=== PATIENT | female | born 1960 | race Caucasian/White ===

== ENCOUNTER → 2017-07-21 | Outpatient (CLI) | payer MEDICARE ==
[~2017-07-21] MED LIST: ALBUTEROL SULFAT3 M3 IH; AMBIEN 10MG10 MG PO; ATARAX 25MG25 MG/TAB PO; CELEXA 20MG20 MG/TAB PO; CELEXA20 MG PO; CELEXA40 MG PO; CEPHALEXIN500 M1 PO; CHANTIX 1MG1 MG PO; CHANTIX1 MG PO; CLEOCIN HCL300 MG PO; COMBIVENT INH14.7 GM IH; DEXILANT; DILAUDID 4MG TAB4 MG PO; ELAVIL10 MG PO; ELAVIL100 MG PO; FLEXERIL 1010 MG/TAB PO; HCTZ12.5TAB PO; HYDROCODONE/APAP; IMITREX100 MG PO; KLONOPIN 0.5MG0.5 MG PO; LEVAQUIN 750MG750 M1 PO; LIDODERM 5% PATC1 EA TP; LIDODERM PATCH TP; LORTAB 10/500 51 TAB; LORTAB 10/500 51 TAB PO; LYRICA 50MG CAP50 MG PO; MIRAPEX 0.0.125 MG/T PO; MS CONTIN15 MG PO; NEXIUM 40MG40 MG PO; NEXIUM PO; NICODERM C21 MG/PATC TOP; NORCO 325 MG-101 TAB PO; NORCO 325 MG-51 TAB PO; OMEGA 31000 MG PO; OXYGEN; PEGASYS180 MCG/0. MR; PHENERGAN 25 TA25 MG PO; PREDNISONE10 MG PO; PREDNISONE20 M1 PO; PRIL40 PO; PROMETHAZINE HC25 M2 PO; PROVENTIL0.09 MG/A1 IH; PROVENTIL0.09 MG/Ac IH; RIBAVIRIN200 MG PO; SEPTRA DS 8001 TAB PO; SEROQUEL 2525 MG/TAB PO; SOMA; SOMA 350MG350 MG/TAB PO; SOMA350 MG PO; TYLENOL 325MG325 MG PO; TYLENOL W/COD1 UDTAB PO; VITAMIN D1000 IU PO; VITAMIN D31000 IU PO; XANAX0.5 MG PO; ZITHROMAX Z PA250 MG PO
== END ==
LOC: COL.VAS 06-16 09:00
DX: R06.02 Shortness of breath (principal)

== ENCOUNTER → 2017-07-26 | Outpatient (CLI) | payer MEDICARE | LOC: COL.PUL 09:57 | DX: R06.02 Shortness of breath (principal); F17.210 Nicotine dependence, cigarettes, uncomplicated | CPT/HCPCS: J7674 ==

== ENCOUNTER 2017-11-03 11:10 | Inpatient (IN) | payer MEDICARE ==
[~2017-11-03] VITALS: Ht 162.6 cm; Wt 93.6 kg
[2017-11-03] VITALS (388 sets, daily range): BP systolic 115–139; BP diastolic 82–97; PULSE 84–91; TEMP 98.3–98.6; O2SAT 93–100
[2017-11-03 11:24] LABS: BASO # 0.1 (0.0-0.2); BASO % 0.6 % (0.0-2.0); EOS # 0.3 (0.0-0.7); EOS % 2.3 % (0-4.0); GRAN # 5.7 (1.4-6.5); HEMATOCRIT 39.8 % (37.0-47.0); HEMOGLOBIN 12.9 g/dl (12.5-16.0); LYMPH # 4.2 (1.2-3.4); LYMPH % 36.5 % (20.0-51.0); MEAN CELL VOLUME 96 fl (80.0-100.0); MEAN CORPUSCULAR HEMOGLOBIN 31 pg (27.0-31.0); MEAN CORPUSCULAR HGB CONC 32 g/dl (33.0-37.0); MEAN PLATELET VOLUME 10.9 fl (7.4-10.4); MONO # 1.2 (0.1-0.6); MONO % 10.2 % (1.7-9.3); PLATELET COUNT 285 K/mm3 (130-400); RED BLOOD COUNT 4.16 M/mm3 (4.10-5.30)
[2017-11-03 11:35] LABS: COLLECTION METHOD CATHETER
[2017-11-03 11:53] LABS: PH 5 (5-8); SQUAMOUS EPITHELIAL None Seen /hpf; URINE APPEARANCE Clear; URINE BACTERIA None Seen /hpf; URINE BILIRUBIN Negative (NEGATIVE); URINE BLOOD Negative (NEGATIVE); URINE COLOR Straw; URINE GLUCOSE Negative (NEGATIVE); URINE KETONE Negative (NEGATIVE); URINE LEUKOCYTE ESTERASE Negative (NEGATIVE); URINE NITRATE Negative (NEGATIVE); URINE PROTEIN(semi-quant) Negative (NEGATIVE); URINE RBC None Seen /hpf; URINE UROBILINOGEN Negative (NEGATIVE)
[2017-11-03 11:59] LABS: ACETAMINOPHEN < 10 ug/mL (10-30); ALANINE AMINOTRANSFERASE 34 U/L (9-52); ALCOHOL(ethanol),MEDICAL < 10 mg/dL; ALKALINE PHOSPHATASE 84 U/L (50-136); ANION GAP 9 mmol/L (7-16); AST,SGOT 28 U/L (15-37); BILIRUBIN,TOTAL 0.2 mg/dL (0.0-1.0); BLOOD UREA NITROGEN 9 mg/dL (7-17); CALCIUM 8.7 mg/dL (8.4-10.2); CARBON DIOXIDE 28 mmol/L (22-30); CHLORIDE 105 mmol/L (98-107); CREATININE, serum 0.66 mg/dL (0.52-1.25); GLUCOSE 92 mg/dL (74-106); POTASSIUM 3.3 mmol/L (3.4-5.0); SALICYLATE < 1.0 mg/dL; SODIUM 141 mmol/L (137-145); TOTAL PROTEIN 7.2 gm/dL (6.4-8.2)
[2017-11-03 12:05] LABS: TRICYCLIC ANTIDEPRESS URINE POSITIVE
[2017-11-03 15:39] LABS: ARTERIAL BLD GAS O2 SATURATION 97.3 % (92-100); ARTERIAL BLD GAS TCO2 CT 27.9; ARTERIAL BLOOD GAS BASE EXCESS 0.4 (-2-2); ARTERIAL BLOOD GAS HCO3 26.4 meq/L (22-26); ARTERIAL BLOOD GAS PCO2 48.4 mmHg (35-45); ARTERIAL BLOOD GAS PO2 102.2 mmHg (80-100); ARTERIAL BLOOD GAS pH 7.36 (7.35-7.45)
[2017-11-04] VITALS (1260 sets, daily range): BP systolic 91–143; BP diastolic 65–97; PULSE 70–99; TEMP 97.7–98.9; O2SAT 92–100
[2017-11-04 05:28] LABS: ARTERIAL BLD GAS O2 SATURATION 97.2 % (92-100); ARTERIAL BLD GAS TCO2 CT 26.5; ARTERIAL BLOOD GAS BASE EXCESS 0.3 (-2-2); ARTERIAL BLOOD GAS HCO3 25.3 meq/L (22-26); ARTERIAL BLOOD GAS PO2 95.9 mmHg (80-100)
[2017-11-04 06:17] LABS: BASO % 0.2 % (0.0-2.0); EOS % 0.1 % (0-4.0); GRAN # 11.6 (1.4-6.5); GRAN % 80.5 % (42.2-75.2); HEMATOCRIT 36.8 % (37.0-47.0); LYMPH # 1.8 (1.2-3.4); LYMPH % 12.3 % (20.0-51.0); MEAN CELL VOLUME 95 fl (80.0-100.0); MEAN CORPUSCULAR HEMOGLOBIN 31 pg (27.0-31.0); MEAN CORPUSCULAR HGB CONC 33 g/dl (33.0-37.0); MONO # 0.9 (0.1-0.6); MONO % 6.5 % (1.7-9.3); PLATELET COUNT 239 K/mm3 (130-400); RED BLOOD COUNT 3.86 M/mm3 (4.10-5.30); REDCELL DISTRIBUTION WIDTH-CV 13.6 % (11.5-14.5)
[2017-11-04 06:31] LABS: ALBUMIN 3.4 gm/dL (3.5-5.0); BILIRUBIN,TOTAL 0.3 mg/dL (0.0-1.0); CALCIUM 8.6 mg/dL (8.4-10.2); CREATININE, serum 0.71 mg/dL (0.52-1.25); MAGNESIUM 1.3 mg/dL (1.6-2.3); PHOSPHOROUS 3.5 mg/dL (2.5-4.5); POTASSIUM 3.8 mmol/L (3.4-5.0); TOTAL PROTEIN 6.5 gm/dL (6.4-8.2)
[2017-11-05] VITALS (1383 sets, daily range): BP systolic 125–183; BP diastolic 84–103; PULSE 59–83; TEMP 97.5–99.3; O2SAT 73–100
[2017-11-05 05:06] LABS: ARTERIAL BLD GAS O2 SATURATION 93.6 % (92-100); ARTERIAL BLD GAS TCO2 CT 26.8; ARTERIAL BLOOD GAS BASE EXCESS 2.1 (-2-2); ARTERIAL BLOOD GAS HCO3 25.7 meq/L (22-26); ARTERIAL BLOOD GAS PCO2 36.4 mmHg (35-45); ARTERIAL BLOOD GAS PO2 68.6 mmHg (80-100); ARTERIAL BLOOD GAS pH 7.47 (7.35-7.45)
[2017-11-05 05:41] LABS: BASO % 0.1 % (0.0-2.0); EOS % 0.1 % (0-4.0); GRAN # 7.6 (1.4-6.5); GRAN % 87.9 % (42.2-75.2); HEMOGLOBIN 11.7 g/dl (12.5-16.0); LYMPH # 0.8 (1.2-3.4); LYMPH % 9.5 % (20.0-51.0); MEAN CELL VOLUME 95 fl (80.0-100.0); MEAN CORPUSCULAR HEMOGLOBIN 31 pg (27.0-31.0); MEAN CORPUSCULAR HGB CONC 33 g/dl (33.0-37.0); MEAN PLATELET VOLUME 11.2 fl (7.4-10.4); MONO # 0.2 (0.1-0.6); MONO % 1.9 % (1.7-9.3); PLATELET COUNT 196 K/mm3 (130-400); RED BLOOD COUNT 3.81 M/mm3 (4.10-5.30); REDCELL DISTRIBUTION WIDTH-CV 13.4 % (11.5-14.5)
[2017-11-05 05:53] LABS: ALBUMIN 3.5 gm/dL (3.5-5.0); BILIRUBIN,TOTAL 0.3 mg/dL (0.0-1.0); CALCIUM 8.6 mg/dL (8.4-10.2); CREATININE, serum 0.64 mg/dL (0.52-1.25); MAGNESIUM 2.2 mg/dL (1.6-2.3); PHOSPHOROUS 3.5 mg/dL (2.5-4.5); POTASSIUM 3.4 mmol/L (3.4-5.0); TOTAL PROTEIN 6.7 gm/dL (6.4-8.2)
[2017-11-06] VITALS (762 sets, daily range): BP systolic 127–165; BP diastolic 66–89; PULSE 60–78; TEMP 97.2–98.8; O2SAT 82–100
[2017-11-06 05:48] LABS: BASO % 0.1 % (0.0-2.0); GRAN # 8.2 (1.4-6.5); GRAN % 86.6 % (42.2-75.2); HEMATOCRIT 38.8 % (37.0-47.0); HEMOGLOBIN 12.4 g/dl (12.5-16.0); LYMPH # 0.9 (1.2-3.4); LYMPH % 9.5 % (20.0-51.0); MEAN CELL VOLUME 97 fl (80.0-100.0); MEAN CORPUSCULAR HEMOGLOBIN 31 pg (27.0-31.0); MEAN CORPUSCULAR HGB CONC 32 g/dl (33.0-37.0); MEAN PLATELET VOLUME 11.1 fl (7.4-10.4); MONO # 0.3 (0.1-0.6); MONO % 3.1 % (1.7-9.3); PLATELET COUNT 246 K/mm3 (130-400); RED BLOOD COUNT 4.01 M/mm3 (4.10-5.30); REDCELL DISTRIBUTION WIDTH-CV 13.2 % (11.5-14.5)
[2017-11-06 06:00] LABS: BILIRUBIN,TOTAL 0.3 mg/dL (0.0-1.0); CALCIUM 9.4 mg/dL (8.4-10.2); CREATININE, serum 0.71 mg/dL (0.52-1.25); MAGNESIUM 2.1 mg/dL (1.6-2.3); PHOSPHOROUS 3.7 mg/dL (2.5-4.5); POTASSIUM 4.4 mmol/L (3.4-5.0); TOTAL PROTEIN 7.5 gm/dL (6.4-8.2)
[2017-11-06] MEDS ORDERED: ZANTAC 150MG T150 MG PO (13:28)
[2017-11-07] VITALS: BP 108/80; PULSE 60; TEMP 98
[2017-11-07 04:45] VITALS: BP 172/98; PULSE 61; TEMP 97.9
[2017-11-07 07:48] VITALS: BP 184/92; PULSE 60; TEMP 98.6
[2017-11-07 12:00] VITALS: BP 172/98; PULSE 78; TEMP 98.3
[2017-11-07 16:14] VITALS: BP 172/11; PULSE 81; TEMP 98
[2017-11-07 21:33] VITALS: BP 142/92; PULSE 79; TEMP 98
[2017-11-08 00:30] VITALS: BP 137/87; PULSE 62; TEMP 98.1
[2017-11-08 05:21] VITALS: BP 171/106; PULSE 80; TEMP 97.5
[2017-11-08 07:53] VITALS: BP 180/103; PULSE 75; TEMP 98.2
[2017-11-08 11:43] VITALS: BP 141/90; PULSE 85; TEMP 97.9
[2017-11-08 15:33] VITALS: BP 130/89; PULSE 94; TEMP 97.7
[2017-11-08 20:41] VITALS: BP 151/100; PULSE 73; TEMP 98.4
[2017-11-09 00:49] VITALS: BP 139/76; PULSE 87; TEMP 98.4
[2017-11-09 04:09] VITALS: BP 146/85; PULSE 73; TEMP 98.3
[2017-11-09 07:47] VITALS: BP 156/99; PULSE 71; TEMP 98.2
[2017-11-09] MEDS ORDERED: ZESTRIL 20MG TA20 MG PO (10:08)
[2017-11-09] MEDS ORDERED: AMOXICILLIN 8751 TAB PO (10:17)
[2017-11-09] MEDS ORDERED: NICODERM C14 MG/PATC TD (10:18)
== END 2017-11-09 14:20 | DRG 917 ==
LOC: COL.ER 11:10 → ICU 12:21 → MEDICAL 11-06 13:55
PROVIDERS: Emergency Medicine; Family Medicine
PROC: 0BH17EZ Insertion of Endotracheal Airway into Trachea, Via Natural or Artificial Opening (ICD-10-PCS; principal; 2017-11-05)
PROC: 5A1945Z Respiratory Ventilation, 24-96 Consecutive Hours (ICD-10-PCS; 2017-11-05)
DX: T42.8X2A Poisoning by antiparkinsonism drugs and other central muscle-tone depressants, intentional self-harm, initial encounter (principal); J96.01 Acute respiratory failure with hypoxia; J69.0 Pneumonitis due to inhalation of food and vomit; F33.2 Major depressive disorder, recurrent severe without psychotic features; J44.9 Chronic obstructive pulmonary disease, unspecified; F17.210 Nicotine dependence, cigarettes, uncomplicated; F15.10 Other stimulant abuse, uncomplicated; F12.10 Cannabis abuse, uncomplicated; I10 Essential (primary) hypertension; E87.6 Hypokalemia; K21.9 Gastro-esophageal reflux disease without esophagitis; G47.00 Insomnia, unspecified
CPT/HCPCS: 99223-AI; 99231-AI; 99232-AI; 99233-AI; 99239; A4314; J0330; J1650; J2250; J2270; J2310; J2543; J2704; J2920; J2930; J3010; J3475; J3480; J7030; J7070; J7512

== ENCOUNTER → 2018-01-26 | Outpatient (CLI) | payer MEDICARE ==
[~2018-01-26] MED LIST changes: +AMOXICILLIN 8751 TAB PO; +NICODERM C14 MG/PATC TD; +ZANTAC 150MG T150 MG PO; +ZESTRIL 20MG TA20 MG PO
== END ==
LOC: COL.VAS 12:49
DX: I51.7 Cardiomegaly (principal); I34.0 Nonrheumatic mitral (valve) insufficiency

== ENCOUNTER → 2019-02-01 | Outpatient (CLI) | payer MEDICARE | LOC: COL.VAS 11:01 | DX: R06.02 Shortness of breath (principal) ==

== ENCOUNTER 2020-08-26 12:43 | Emergency (ER) | payer MEDICARE ==
[~2020-08-26] VITALS: Ht 165.1 cm; Wt 93.6 kg
[2020-08-26 12:59] VITALS: BP 188/118; PULSE 83; TEMP 97.7
== END 2020-08-26 14:20 | disposition left against medical advice (07) ==
LOC: COL.ER 12:43
DX: I10 Essential (primary) hypertension (principal); Z53.21 Procedure and treatment not carried out due to patient leaving prior to being seen by health care provider

== ENCOUNTER 2020-09-26 07:14 | Day surgery (SDC) | payer MEDICARE, MEDICAID ==
[2020-09-26] VITALS (13 sets, daily range): BP systolic 102–138; BP diastolic 77–112; PULSE 62–77; TEMP 98.1
[~2020-09-26] VITALS: Ht 165.1 cm; Wt 93.6 kg
[2020-09-26 08:15] LABS: HEMATOCRIT 43.3 % (37.0-47.0); HEMOGLOBIN 13.7 g/dl (12.5-16.0); MEAN CELL VOLUME 95 fl (80.0-100.0); MEAN CORPUSCULAR HEMOGLOBIN 30 pg (27.0-31.0); MEAN CORPUSCULAR HGB CONC 32 g/dl (33.0-37.0); MEAN PLATELET VOLUME 10.2 fl (7.4-10.4); PLATELET COUNT 308 K/mm3 (130-400); RED BLOOD COUNT 4.57 M/mm3 (4.10-5.30); REDCELL DISTRIBUTION WIDTH-CV 13.8 % (11.5-14.5)
[2020-09-26 08:21] LABS: PROTHROMBIN TIME 11.5 SECONDS (9.7-12.8)
[2020-09-26 08:24] LABS: CALCIUM 9.4 mg/dL (8.4-10.2); CREATININE, serum 0.84 (0.52-1.25); PARTIAL THROMBOPLASTIN TIME 32.8 SECONDS (26.0-37.0); POTASSIUM 3.9 mmol/L (3.4-5.0)
[2020-09-26] MEDS ORDERED: NORCO 325 MG-101 TAB PO (08:45)
[2020-09-26] MEDS ORDERED: SOMA 350MG350 MG/TAB PO (08:46)
[2020-09-26] MEDS ORDERED: ELAVIL100 MG PO (08:46)
[2020-09-26] MEDS ORDERED: LIPITOR 40MG TA40 MG PO (08:47)
[2020-09-26] MEDS ORDERED: PRIL40 PO (08:47)
[2020-09-26] MEDS ORDERED: ZESTRIL 20MG TA20 MG PO (08:49)
[2020-09-26] MEDS ORDERED: OXYGEN ×2 (08:50→08:53)
[2020-09-26] MEDS ORDERED: ASPIRIN 81M81 MG/TA2 PO (08:50)
[2020-09-26] MEDS ORDERED: TRELEGY ELLIPT1 EACH IH (08:51)
[2020-09-26] MEDS ORDERED: PROAIR HFA0.09 MG/AC IH (08:52)
--- NOTE | 2020-09-26 09:15 | NUR ---
SEE MAKEDA FOR ALLMEDICATION ADMINISTRATION TIMES, INTRA AND POST SEDATION ASSESSMENTS
--- NOTE | 2020-09-26 09:30 | NUR ---
Report from Rosette MARR. REsting in bed, denies pain at this time. VSS. Right Tband with 16 cc air, CD&I, good pulses and cap refill < 3 secs.
--- NOTE | 2020-09-26 15:07 | NUR ---
Discharge instructions given to pt.pt verbalizes understanding.INT remoed,catheter tip intact.pt escorted out via wheelchair by this nurse.
== END 2020-09-26 15:34 | disposition home or self-care (01) ==
LOC: COL.CAR 07:14
PROVIDERS: Internal Medicine Cardiovascular Disease
DX: I25.10 Atherosclerotic heart disease of native coronary artery without angina pectoris (principal)
CPT/HCPCS: J1644; J2250; J3010; Q9967

== ENCOUNTER 2021-11-01 23:17 | Emergency (ER) | payer MEDICARE, MEDICAID ==
[~2021-11-01] VITALS: Ht 167.6 cm; Wt 78.6 kg
[~2021-11-01 23:17] MED LIST changes: +ASPIRIN 81M81 MG/TA2 PO; +LIPITOR 40MG TA40 MG PO; +PROAIR HFA0.09 MG/AC IH; +TRELEGY ELLIPT1 EACH IH
[2021-11-01 23:46] VITALS: TEMP 98.5
[2021-11-02 00:32] LABS: BASO # 0.1 K/mm3 (0.0-0.2); BASO % 0.5 % (0.0-2.0); EOS # 0.2 K/mm3 (0.0-0.7); EOS % 1.9 % (0.0-4.0); GRAN # 5.2 K/mm3 (1.4-6.5); GRAN % 56.5 % (42.2-75.2); HEMATOCRIT 46.1 % (37.0-47.0); HEMOGLOBIN 14.9 g/dl (12.5-16.0); LYMPH # 2.9 K/mm3 (1.2-3.4); LYMPH % 31.1 % (20.0-51.0); MEAN CELL VOLUME 99 fl (80.0-100.0); MEAN CORPUSCULAR HEMOGLOBIN 32 pg (27-31); MEAN CORPUSCULAR HGB CONC 32 g/dl (33.0-37.0); MEAN PLATELET VOLUME 10.4 fl (7.4-10.4); MONO # 0.9 K/mm3 (0.1-0.6); MONO % 9.7 % (1.7-9.3); PLATELET COUNT 314 K/mm3 (130-400); RED BLOOD COUNT 4.68 M/mm3 (4.10-5.30)
[2021-11-02 00:48] LABS: ALANINE AMINOTRANSFERASE 18 U/L (0-55); ALBUMIN 3.9 gm/dL (3.4-4.8); ALKALINE PHOSPHATASE 131 U/L (40-150); ANION GAP 13 mmol/L (7-16); AST,SGOT 34 U/L (5-34); BILIRUBIN,TOTAL 0.5 mg/dL (0.2-1.2); BLOOD UREA NITROGEN 7 mg/dL (10-20); CALCIUM 9.6 mg/dL (8.4-10.2); CARBON DIOXIDE 28 mmol/L (23-31); CHLORIDE 102 mmol/L (98-107); CREATININE, serum 0.88 mg/dL (0.57-1.11); GLUCOSE 100 mg/dL (70-99); LIPASE < 10 U/L (8-78); POTASSIUM 3.6 mmol/L (3.5-4.5); SODIUM 143 mmol/L (136-145); TOTAL PROTEIN 7.9 gm/dL (6.2-8.1)
[2021-11-02 01:08] LABS: TSH w REFLEX 0.848 uIU/mL (0.350-4.940)
[2021-11-02 01:10] LABS: TROPONIN-I < 0.010 ng/mL (0.00-0.033)
[2021-11-02 02:29] VITALS: BP 193/128; PULSE 80
== END 2021-11-02 02:29 | disposition home or self-care (01) ==
LOC: COL.ER 23:17
PROVIDERS: Emergency Medicine
DX: R41.82 Altered mental status, unspecified (principal); F15.10 Other stimulant abuse, uncomplicated; I10 Essential (primary) hypertension; J44.9 Chronic obstructive pulmonary disease, unspecified; G89.29 Other chronic pain; M54.9 Dorsalgia, unspecified; K21.9 Gastro-esophageal reflux disease without esophagitis; Z79.899 Other long term (current) drug therapy; Z79.51 Long term (current) use of inhaled steroids; Z20.822 Contact with and (suspected) exposure to COVID-19

== ENCOUNTER → 2021-12-15 | Outpatient (CLI) | payer MEDICARE, MEDICAID | LOC: COL.RAD 12:49 | DX: M47.817 Spondylosis without myelopathy or radiculopathy, lumbosacral region (principal); M51.37 Other intervertebral disc degeneration, lumbosacral region; M48.07 Spinal stenosis, lumbosacral region; M41.86 Other forms of scoliosis, lumbar region ==

== ENCOUNTER 2022-01-14 10:15 | Outpatient (RCR) | payer MEDICARE, MEDICAID | END 2022-01-15 | disposition home or self-care (01) | LOC: PT.GENESIS | DX: M54.41 Lumbago with sciatica, right side (principal); R26.81 Unsteadiness on feet ==

== ENCOUNTER → 2022-01-20 | Outpatient (CLI) | payer MEDICARE, MEDICAID | LOC: MC.RAD 12:55 | DX: Z12.31 Encounter for screening mammogram for malignant neoplasm of breast (principal); Z12.11 Encounter for screening for malignant neoplasm of colon ==

== ENCOUNTER 2022-03-04 10:15 | Outpatient (RCR) | payer MEDICARE, MEDICAID | END 2022-03-17 | disposition home or self-care (01) | LOC: PT.GENESIS | DX: M51.36 Other intervertebral disc degeneration, lumbar region (principal); M48.061 Spinal stenosis, lumbar region without neurogenic claudication; M41.86 Other forms of scoliosis, lumbar region ==

== ENCOUNTER 2022-05-11 09:08 | Outpatient (RCR) | payer MEDICARE, MEDICAID | END 2022-05-17 | disposition home or self-care (01) | LOC: PT.GENESIS | DX: M54.41 Lumbago with sciatica, right side (principal) ==

== ENCOUNTER 2022-05-27 13:00 | Outpatient (RCR) | payer MEDICARE, MEDICAID | END 2022-06-17 | disposition home or self-care (01) | LOC: PT.GENESIS | DX: M51.36 Other intervertebral disc degeneration, lumbar region (principal); M48.061 Spinal stenosis, lumbar region without neurogenic claudication; M41.86 Other forms of scoliosis, lumbar region ==

== ENCOUNTER 2022-12-22 15:00 | Outpatient (RCR) | payer MEDICARE, MEDICAID | END 2023-01-15 | LOC: WSPT | DX: M48.061 Spinal stenosis, lumbar region without neurogenic claudication (principal); M41.86 Other forms of scoliosis, lumbar region ==

== ENCOUNTER → 2024-09-06 | Outpatient (CLI) | payer MEDICARE, MEDICAID | LOC: COL.RAD 09:00 | DX: R90.82 White matter disease, unspecified (principal); F01.50 Vascular dementia, unspecified severity, without behavioral disturbance, psychotic disturbance, mood disturbance, and anxiety ==